=== PATIENT | male | born 1985 | race Caucasian/White ===

== ENCOUNTER 2018-09-19 09:21 | Emergency (ER) | payer OTHER ==
[2018-09-19 09:28] VITALS: BP 125/88; PULSE 80; RESP 16; TEMP 97.3; O2SAT 99
[2018-09-19] MEDS ORDERED: Bacitracin 500 Units/gm Oint Foilpak UD ONE (10:27)
[2018-09-19] MEDS ORDERED: Lidocaine 2% MPF (5 ml) Inj ONE (10:27)
[2018-09-19] MEDS ORDERED: Tdap Vaccine 0.5 ml Vial (10-64 yrs) IM ONE (10:28)
--- NOTE | 2018-09-19 11:15 | C.PDOC ---
History Of Present Illness 33 y/o male presents to the ED reporting laceration on his left forearm. Pt reports he was placing his air conditioner in the window, when it fell and attempted to catch it. Pt then cut his forearm on the frame of the window. Pt is UTD on his tetanus shot on 12/21/2015. Pt also reports of a small laceration on the dorsum of his left hand. Pt denies any other injuries, weakness, numbness, tingling, head injury and LOC. Chief Complaint (Nursing): Abnormal Skin Integrity History Per: Patient History/Exam Limitations: no limitations Onset/Duration Of Symptoms: Hrs Current Symptoms Are (Timing): Still Present Location Of Injury: Left: Forearm, Hand, Posterior: Forearm, Hand Quality Of Symptoms: Painful, Draining (blood). denies: Itching, Swollen Past Medical History Reviewed: Historical Data, Nursing Documentation, Vital Signs Vital Signs: Last Vital Signs Temp 97.3 F L 09/19/18 09:24 Pulse 80 09/19/18 09:24 Resp 16 09/19/18 09:24 BP 125/88 09/19/18 09:24 Pulse Ox 99 09/19/18 09:24 Primary Care Provider: FAMILY PROVIDER,NO Family History: States: Unknown Family Hx - Social History Hx Tobacco Use: No Hx Alcohol Use: Yes Hx Substance Use: No - Immunization History Hx Tetanus Toxoid Vaccination: No Hx Influenza Vaccination: No Hx Pneumococcal Vaccination: No Review Of Systems Constitutional: Negative for: Other (head injury ) Cardiovascular: Negative for: Chest Pain Respiratory: Negative for: Shortness of Breath Gastrointestinal: Negative for: Nausea, Vomiting Musculoskeletal: Positive for: Arm Pain, Hand Pain Skin: Positive for: Other (laceration on right forearm and left dorsum of the hand). Negative for: Rash Neurological: Negative for: Weakness, Numbness, Other (LOC; tingling ) Physical Exam - Physical Exam Appears: Non-toxic, No Acute Distress Skin: Warm, Dry Head: Atraumatic, Normacephalic Chest: Symmetrical Cardiovascular: Rhythm Regular Respiratory: Normal Breath Sounds, No Accessory Muscle Use Extremity: Normal ROM (FROM), Tenderness (hand and arm), Capillary Refill (<2 sec), No Deformity, No Swelling, Other (7x1 laceration on the dorsal aspect of the forearm; 1 cm laceration on the dorsal aspect of the left hand) Pulses: Left Radial: Normal, Right Radial: Normal Neurological/Psych: Oriented x3, Normal Speech, Normal Cognition, Normal Motor, Normal Sensation Gait: Steady ED Course And Treatment O2 Sat by Pulse Oximetry: 99 (RA) Pulse Ox Interpretation: Normal Laceration - Laceration Repair left Wound Length (In cm): 7x1 Description Of Wound: Linear Wound Cleansed With: Betadine Anesthesia: Lidocaine 2% Wound Examination: Irrigated With Saline, No FB With Wound Exploration Wound Closure: Suture (14) Suture Technique And Material Used: Interrupted, Prolene (3-O) Wound Complexity: Complex Medical Decision Making Medical Decision Making: plans: -- laceration repair of left forearm with sutures and left hand with glue/ steris --bacitracin applied --Patient is stable for discharge. Disposition Counseled Patient/Family Regarding: Diagnosis, Need For Followup, Rx Given - Disposition Referrals: [facility] [Outside] Disposition: HOME/ ROUTINE Disposition Time: 11:12 Condition: IMPROVED Additional Instructions: Apply Bacitracin once daily Keep wound clean and dry Return to the ED in 7-10 days for suture removal Prescriptions: Bacitracin OINT 1 applic TP DAILY #1 tube Instructions: Laceration Repair With Glue (DC), Wound Care (DC), Laceration Repair With Stitches (DC) Forms: Shake (Wolof) Print Language: ENGLISH - Clinical Impression Clinical Impression: Left arm pain, Laceration, Left hand pain - PA / HOTEL MANAGER / Resident Statement / has reviewed & agrees with the documentation as recorded. - Scribe Statement The provider has reviewed the documentation as recorded by the Taiwo Pendleton Do All medical record entries made by the Scribe were at my direction and personally dictated by me. I have reviewed the chart and agree that the record accurately reflects my personal performance of the history, physical exam, medical decision making, and the department course for this patient. I have also personally directed, reviewed, and agree with the discharge instructions and disposition.
== END 2018-09-19 11:22 | disposition home or self-care (01) ==
LOC: C.ER 09:21
DX: S51.812A Laceration without foreign body of left forearm, initial encounter (principal); S61.412A Laceration without foreign body of left hand, initial encounter; W45.8XXA Other foreign body or object entering through skin, initial encounter; M79.632 Pain in left forearm; M79.642 Pain in left hand